=== PATIENT | male | born 1975 | race American Indian/Alaskan Native ===

== ENCOUNTER 2016-12-22 16:05 | Emergency (ER) | payer SELFPAY ==
--- NOTE | 2016-12-22 17:05 | Emergency Department Report ---
HPI - General Chief Complaint: Chest Pain Time Seen by Provider: 12/22/16 16:56 - HPI HPI: This is a 41 year-old male who presents to the emergency department via EMS with a complaint of some palpitations and a gas-like sensation in the chest after he smoked some "strong marijuana" and had a energy drink. Currently he feels better and is asymptomatic. He denies any significant chest pain, shortness of breath, nausea, vomiting or diaphoresis. He denies any past medical history. He denies tobacco abuse or any other illicit drug use. No recent travel or sick contacts at home. He does not have a primary care physician but says that he last had a physical with blood work about one year ago. He did not take anything and was not given anything for his symptoms prior to presentation. ED Past Medical Hx - Past Medical History Previous Medical History?: No - Surgical History Past Surgical History?: Yes Hx Appendectomy: Yes Additional Surgical History: LEFT FOOT SURGERY - Social History Smoking Status: Never Smoker Substance Use Type: Marijuana - Medications Home Medications: Home Medications Medication Instructions Recorded Confirmed Last Taken Type Acetaminophen/Codeine 1 tab PO Q6H PRN #10 tab 06/02/14 Unknown Rx [Acetaminophen-Codeine #3 TAB] Cyclobenzaprine [Flexeril 10mg] 10 mg PO BID PRN #10 tablet 06/02/14 Unknown Rx Ibuprofen [Motrin 600 MG tab] 600 mg PO Q8H PRN #15 tablet 06/02/14 Unknown Rx ED Review of Systems ROS: Stated complaint: CHEST PAIN Other details as noted in HPI Comment: All other systems reviewed and negative Constitutional: denies: chills, fever Eyes: denies: eye pain, eye discharge, vision change ENT: denies: ear pain, throat pain Respiratory: denies: cough, shortness of breath, wheezing Cardiovascular: palpitations. denies: edema Gastrointestinal: denies: abdominal pain, nausea, diarrhea Genitourinary: denies: urgency, dysuria Musculoskeletal: denies: back pain, joint swelling, arthralgia Skin: denies: rash, lesions Neurological: denies: headache, weakness, paresthesias Physical Exam - Physical Exam Vital Signs: Vital Signs 12/22/16 12/22/16 16:26 16:29 Pulse Rate 68 Respiratory 13 18 Rate Blood Pressure 139/85 O2 Sat by Pulse 98 Oximetry Physical Exam: GENERAL: The patient is well-developed well-nourished. HENT: Normocephalic. Atraumatic. Patient has moist mucous membranes. EYES: Extraocular motions are intact. Pupils equal reactive to light bilaterally. NECK: Supple. Trachea is midline. CHEST/LUNGS: Clear to auscultation. There is no respiratory distress noted. HEART/CARDIOVASCULAR: Regular. There is no tachycardia. There is no gallop rub or murmur. ABDOMEN: Abdomen is soft, nontender. Patient has normal bowel sounds. There is no abdominal distention. SKIN: Skin is warm and dry. NEURO: The patient is awake, alert, and oriented. The patient is cooperative. The patient has no focal neurologic deficits. The patient has normal speech and gait. MUSCULOSKELETAL: There is no tenderness or deformity. There is no limitation range of motion. There is no evidence of acute injury. ED Course Vital Signs 12/22/16 12/22/16 16:26 16:29 Pulse Rate 68 Respiratory 13 18 Rate Blood Pressure 139/85 O2 Sat by Pulse 98 Oximetry ED Medical Decision Making - Lab Data Result diagrams: 12/22/16 17:16 12/22/16 17:16 - EKG Data -: EKG Interpreted by Me EKG shows normal: sinus rhythm, axis, intervals, QRS complexes, ST-T waves Rate: normal - EKG Data When compared to previous EKG there are: previous EKG unavailable Interpretation: normal EKG - Radiology Data Radiology results: image reviewed interpreted by me: Chest x-ray does not show any acute process. There are no pleural effusions, obvious pneumonia and there is no pneumothorax. - Medical Decision Making 41-year-old male presents to the emergency department with some palpitations after smoking marijuana and drinking an energy drink. This is most likely the cause but the patient was checked out with some labs and imaging an EKG. EKG does not show any signs of ST elevation MT or arrhythmia. Labs are unremarkable including a negative troponin and normal thyroid function. Chest x -ray does not show any acute process. The patient has been asymptomatic during his ER course. - Differential Diagnosis hypothyroid, substance abuse, dysrhythmia Critical Care Time: No Critical care attestation.: If time is entered above; I have spent that time in minutes in the direct care of this critically ill patient, excluding procedure time. ED Disposition Clinical Impression: Palpitations Disposition: DC-01 TO HOME OR SELFCARE Is pt being admited?: No Condition: Good Instructions: Palpitations (ED) Additional Instructions: Please follow up with a primary care doctor in the next few days. Return to the emergency department with any return or worsening of her symptoms, or any acute distress. Referrals: PRIMARY CAREMD [Primary Care Provider] - 3-5 Days VIVIAN CEDILLO JR, MD [Staff Physician] - 3-5 Days [facility] [Outside] - 3-5 Days Time of Disposition: 18:38
[2016-12-22 17:34] LABS: Basophils % (Auto) 0.6 % (0.0-1.8); Eosinophils % (Auto) 1.4 % (0.0-4.3); Hematocrit 39.6 % (35.5-45.6); Hemoglobin 13.3 gm/dl (11.8-15.2); Mean Corpuscular HGB Conc 34 % (32-34); Mean Corpuscular Hemoglobin 28 pg (28-32); Mean Corpuscular Volume 84 fl (84-94); Platelet Count 235 K/mm3 (140-440); Red Blood Count 4.69 M/mm3 (3.65-5.03); Red Cell Distribution Width 13.5 % (13.2-15.2); White Blood Count 7.8 K/mm3 (4.5-11.0)
[2016-12-22 17:52] LABS: Anion Gap 18 mmol/L; Blood Urea Nitrogen 15 mg/dL (9-20); Calcium 9.5 mg/dL (8.4-10.2); Carbon Dioxide 25 mmol/L (22-30); Chloride 98.6 mmol/L (98-107); Glucose 98 mg/dL (75-100); Sodium 138 mmol/L (137-145)
[2016-12-22 18:29] VITALS: BP 134/80
--- NOTE | 2016-12-23 07:55 | XRay Report ---
AP CHEST: HISTORY: Palpitations AP view of the chest demonstrates a normal mediastinal and cardiac contour with clear lungs and normal bony and soft tissue structures. IMPRESSION: Unremarkable AP chest.
== END 2016-12-22 18:54 | disposition home or self-care (01) ==
LOC: ED 16:05
DX: R00.2 Palpitations (principal); F12.10 Cannabis abuse, uncomplicated
CPT/HCPCS: 36415; 71010; 80048; 84443; 84484; 85025; 93005; 93010; 99284